=== PATIENT | female | born 1970 | race Caucasian/White ===

== ENCOUNTER 2021-05-02 18:48 | Emergency (ER) | payer OTHER, BC ==
[2021-05-02 19:12] VITALS: BP 121/72; PULSE 71; TEMP 98.4; BMI 35.0
[2021-05-02] MEDS ORDERED: KETOROLAC TROMETHAMINE 60 MG/2 ML VIAL IM ONE (19:30)
[2021-05-02] MEDS ORDERED: KETOROLAC TROMETHAMINE 60 MG/2 ML VIAL ONE (19:34)
== END 2021-05-02 19:45 | disposition home or self-care (01) ==
LOC: JERFT 18:48
PROC: 3E0233Z Introduction of Anti-inflammatory into Muscle, Percutaneous Approach (ICD-10-PCS; principal; 2021-05-02)
DX: M25.512 Pain in left shoulder (principal)
CPT/HCPCS: 99284-25